=== PATIENT | female | born 1960 | race Caucasian/White ===

== ENCOUNTER → 2017-04-10 | Outpatient (CLI) | payer BC ==
[~2017-04-10] MED LIST: ACET-1138 PO; ASPEC81 PO; CHOL100010 PO; FLUT0.15; GLC/500 PO; HYDR25TA4 PO; OMEG10007 PO; OXYSR10 PO; RXC5 PO; SERT25TA PO
== END | disposition home or self-care (01) ==
LOC: C.CPL 14:08
PROVIDERS: ATTEND Orthopaedic Surgery
DX: Z01.810 Encounter for preprocedural cardiovascular examination (principal)